=== PATIENT | female | born 1985 | race Caucasian/White ===

== ENCOUNTER 2016-10-07 07:44 | Emergency (ER) | payer OTHER ==
[~2016-10-07] VITALS: Ht 170.2 cm; Wt 60.0 kg
[2016-10-07 07:46] VITALS: BP 123/104; PULSE 95; RESP 24; TEMP 99.1; O2SAT 99
[2016-10-07] MEDS ORDERED: SODIUM CHLOR 0.9% 1000 ML INJ 1,000 ML IV SCH (09:30)
[2016-10-07 10:04] LABS: BLOOD, URINE NEG (NEG); GLUCOSE,URINE NEG (NEG); KETONE, URINE NEG (NEG); NITRITE,URINE NEG (NEG); SQUAMOUS EPITHELIAL CELL URINE <1 /hpf (0-5); URINE COLOR LIGHT-YELLOW (YELLW/STRAW)
[2016-10-07 10:07] LABS: COMMENT (UR) CULT NOT INDICATED; CULTURE IF INDICATED CULT NOT INDICATED
[2016-10-07 10:12] LABS: AUTOMATED NEUTROPHIL # 9.2 TH/MM3 (1.8-7.7); BASOPHIL % 0.4 % (0.0-2.0); EOSINOPHIL % 0.4 % (0.0-4.0); HEMATOCRIT 42.6 % (35.0-46.0); HEMO FLAGS DIFF FINAL; LYMPH % 9.2 % (9.0-44.0); MEAN CELL VOLUME 82.9 FL (80.0-100.0); MEAN CORPUSCULAR HEMOGLOBIN 28.7 PG (27.0-34.0); MEAN CORPUSCULAR HGB CONC 34.6 % (32.0-36.0); MONO % 5.9 % (0.0-8.0); NEUT % 84.1 % (16.0-70.0); PLATELET COUNT 294 TH/MM3 (150-450); RED BLOOD COUNT 5.14 MIL/MM3 (4.00-5.30); RED CELL DISTRIBUTION WIDTH 13.3 % (11.6-17.2); WHITE BLOOD COUNT 10.9 TH/MM3 (4.0-11.0)
[2016-10-07 10:16] LABS: BICARBONATE 23.8 MEQ/L (21.0-32.0); POTASSIUM 3.7 MEQ/L (3.5-5.1)
--- NOTE | 2016-10-07 10:32 | PD ---
HPI Chief Complaint: Motel Keeper Problem/Complaint Time Seen by Provider: 09:29 Travel History International Travel<30 days: No Contact w/Intl Traveler<30days: No Traveled to known affect area: No History of Present Illness HPI This is a 30-year-old female who presents today with complaints of lower pelvic pain 3 days. Patient reports that she's had a previous ruptured ovarian cyst. She states the pain feels similar however it's lasted longer than her previous ruptured cyst. She reports severe pain in her lower pelvic region that radiates up towards her umbilicus. She denies any nausea vomiting diarrhea. She denies any fevers, chills. She does report that she's had vaginal spotting. She denies any vaginal discharge. There is no urinary symptoms. She states that she stopped taking her control pills 2 weeks ago. She reports she had a period from October 29 through November 02. She is sexually active. [facility] Past Medical History Diminished Hearing: No Headaches: Yes Reproductive: Yes (ovarian cyst rupture) Tetanus Vaccination: Unknown Influenza Vaccination: No ?: Not LMP: 09/27/16 Past Surgical History Abdominal Surgery: Yes (hernia repair) Social History Alcohol Use: No Tobacco Use: No Substance Use: Yes (marijuana) Allergies-Medications (Allergen,Severity, Reaction): Coded Allergies: No Known Allergies (Unverified , 10/07/16) Reported Meds & Prescriptions Reported Meds & Active Scripts Active No Active Prescriptions or Reported Medications Review of Systems Except as stated in HPI: all other systems reviewed are Neg General / Constitutional: No: Fever, Chills HENT: No: Headaches, Neck Pain Cardiovascular: No: Chest Pain or Discomfort, Palpitations Respiratory: No: Cough, Shortness of Breath Genitourinary: Positive: Pelvic Pain, Vaginal Bleeding, No: Frequency, Dysuria , Discharge Musculoskeletal: No: Weakness, Pain Neurologic: No: Weakness, Dizziness, Headache Physical Exam Narrative GENERAL: Well-nourished, well-developed patient, in no acute respiratory distress. SKIN: Focused skin assessment warm/dry. HEAD: Normocephalic/atraumatic. EYES: No scleral icterus. No injection or drainage. NECK: Supple, trachea midline. No JVD or lymphadenopathy. CARDIOVASCULAR: Regular rate and rhythm without murmurs, gallops, or rubs. RESPIRATORY: Breath sounds equal bilaterally. No accessory muscle use. GASTROINTESTINAL: Abdomen soft, nondistended. She has tenderness to palpation in her lower suprapubic region. There is no rebound or guarding. GENITOURINARY: Normal external genitalia without lesions or erythema. Vaginal vault without blood. There was brown yellow discharge in the deep vault. No foreign bodies appreciated. On bimanual exam, there was cervical motion tenderness. There is also bilateral adnexal discomfort. No masses appreciated. MUSCULOSKELETAL: No cyanosis, or edema. BACK: Nontender without obvious deformity. No CVA tenderness. NEUROLOGICAL: Awake and alert. Cranial nerves II through XII intact. Motor grossly within normal limits. Five out of 5 muscle strength in all muscle groups. Normal speech. Data Data Last Documented VS Vital Signs Date Time Temp Pulse Resp B/P Pulse Ox O2 Delivery O2 Flow Rate FiO2 10/07/16 07:46 99.1 95 24 123/104 99 Room Air Orders Complete Blood Count With Diff (10/07/16 09:29) Basic Metabolic Panel (Bmp) (10/07/16 09:29) Gc And Chlamydia Pcr (10/07/16 09:29) Wet Prep Profile (10/07/16 09:29) Urinalysis - C+S If Indicated (10/07/16 09:29) Iv Access Insert/Monitor (10/07/16 09:29) Ecg Monitoring (10/07/16 09:29) Ed Urine Pregnancytest Poc (10/07/16 09:29) Sodium Chlor 0.9% 1000 Ml Inj (Ns 1000 M (10/07/16 09:30) Us Pelvis Comp W Dop Transvag (10/07/16 10:51) Ceftriaxone Inj (Rocephin Inj) (10/07/16 12:30) Azithromycin Powd Pack (Zithromax Powd P (10/07/16 12:30) Ketorolac Inj (Toradol Inj) (10/07/16 13:00) Labs Laboratory Tests Test 10/07/16 10/07/16 09:40 10:44 White Blood Count 10.9 TH/MM3 Red Blood Count 5.14 MIL/MM3 Hemoglobin 14.7 GM/DL Hematocrit 42.6 % Mean Corpuscular Volume 82.9 FL Mean Corpuscular Hemoglobin 28.7 PG Mean Corpuscular Hemoglobin 34.6 % Concent Red Cell Distribution Width 13.3 % Platelet Count 294 TH/MM3 Mean Platelet Volume 8.9 FL Neutrophils (%) (Auto) 84.1 % Lymphocytes (%) (Auto) 9.2 % Monocytes (%) (Auto) 5.9 % Eosinophils (%) (Auto) 0.4 % Basophils (%) (Auto) 0.4 % Neutrophils # (Auto) 9.2 TH/MM3 Lymphocytes # (Auto) 1.0 TH/MM3 Monocytes # (Auto) 0.6 TH/MM3 Eosinophils # (Auto) 0.0 TH/MM3 Basophils # (Auto) 0.0 TH/MM3 CBC Comment DIFF FINAL Differential Comment Urine Color LIGHT-YELLOW Urine Turbidity HAZY Urine pH 8.0 Urine Specific [place] 1.010 Urine Protein NEG mg/dL Urine Glucose (UA) NEG mg/dL Urine Ketones NEG mg/dL Urine Occult Blood NEG Urine Nitrite NEG Urine Bilirubin NEG Urine Urobilinogen LESS THAN 2.0 MG/DL Urine Leukocyte Esterase NEG Urine RBC 1 /hpf Urine WBC 1 /hpf Urine Squamous Epithelial <1 /hpf Cells Microscopic Urinalysis Comment CULT NOT INDICATED Sodium Level 136 MEQ/L Potassium Level 3.7 MEQ/L Chloride Level 105 MEQ/L Carbon Dioxide Level 23.8 MEQ/L Anion Gap 7 MEQ/L Blood Urea Nitrogen 9 MG/DL Creatinine 0.64 MG/DL Estimat Glomerular Filtration 110 ML/MIN Rate Random Glucose 92 MG/DL Calcium Level 10.6 MG/DL Clue Cells (Wet Prep) NONE SEEN Vaginal Trichomonas (Wet Prep) NONE SEEN Vaginal Yeast (Wet Prep) NONE SEEN MDM Medical Decision Making Medical Screen Exam Complete: Yes Emergency Medical Condition: Yes Differential Diagnosis Ruptured cyst versus ectopic versus PID versus appendicitis. Narrative Course 30-year-old female presents with lower abdominal pelvic pain. The patient has cervical motion tenderness and adnexal discomfort bilaterally on exam. Ultrasound is negative for TOA or torsed ovary. She does have a complex cyst in her right adnexa. There is calcifications in one of the differential diagnosis would be dermoid cyst. I informed her of this and told her that she should follow up with her [employer] physician for further evaluation. She's been treated with Rocephin and Zithromax. Cultures are pending at this time. I do not believe she has an appendicitis. Her white count is 10.9. She has no nausea or vomiting. She's been given one dose of Toradol 30 mg times one dose. She'll be discharged with further doses for the next few days. She is instructed return if she does any worsening pain, fevers chills, nausea vomiting , or any other reason. Diagnosis Primary Impression: suspected pelvic infection Additional Impression: Complex cyst of right ovary Additional Instructions: Return if feeling worse. Follow up with [employer] physician for the complex cyst in the right ovary. This could be a dermoid cyst Med/Other Pt SpecificInfo: Prescription(s) given Scripts No Active Prescriptions or Reported Meds Disposition: 01 DISCHARGE HOME Condition: Stable Mychal Dodson MD Oct 07, 2016 10:32
[2016-10-07] MEDS ORDERED: AZITHROMYCIN PWD FOR SUSP 1 GM PACKET PO ONE (12:30)
[2016-10-07] MEDS ORDERED: cefTRIAXone INJ 1,000 MG in SODIUM CHLORIDE 0.9% INJ 100 ML IV ONE (12:30)
--- NOTE | 2016-10-07 12:33 | RADRPT ---
EXAM DATE/TIME: 10/07/2016 11:06 [facility] COMPARISON: No previous studies available for comparison. INDICATIONS : Pelvic pain, evaluate for abscess, torsion, tubo-ovarian abscess. MEDICAL HISTORY : Ovarian cysts. SURGICAL HISTORY : Hernia repair. ENCOUNTER: Initial ACUITY: 3 days PAIN SCORE: 8/10 LOCATION: Bilateral pelvis MEASUREMENTS: UTERUS: 9.5 x 5.9 x 4.5 cm ENDOMETRIAL STRIPE: 5 mm RIGHT OVARY: 4.4 x 3.6 x 2.7 cm LEFT OVARY: 8.1 x 6.7 x 4.9 cm FINDINGS: UTERUS: The myometrium has homogeneous echotexture without mass. RIGHT OVARY: Simple appearing and slightly greater than 2 cm cyst. LEFT OVARY: Enlarged with simple cystic area in addition to a complex hypoechoic area associated with small calci fication. MISCELLANEOUS: No free fluid. CONCLUSION: Prominent left ovary with complex mass process. Dermoid should be considered. Further evaluation on e lective basis with pelvic MRI may be helpful. No acute findings. Gigi Merino MD on October 07, 2016 at 12:28 Board Certified Radiologist. This report was verified electronically.
[2016-10-07] MEDS ORDERED: KETO10 PO (12:58)
[2016-10-07] MEDS ORDERED: KETOROLAC TROMETHAMINE 30 MG/ML (IVP) VIAL IV PUSH ONE (13:00)
[2016-10-07 13:20] LABS: CHLAMYDIA PCR NOT DETECTED (NOT DETECT); NEISSERIA PCR NOT DETECTED (NOT DETECT)
[2016-10-07 13:46] VITALS: BP 100/82
== END 2016-10-07 13:45 | disposition home or self-care (01) ==
LOC: NEPE 07:44 → NEDAMB 13:45
DX: N83.201 Unspecified ovarian cyst, right side (principal)
CPT/HCPCS: 76830; 76856; 80048; 81001; 84703; 85025; 87210; 87491; 87591; 93975; 96361; 96365; 96375; 99285; J0696; J1885; J7030